=== PATIENT | male | born 1955 ===

== ENCOUNTER 2023-06-16 09:30 | Inpatient (IN) | payer OTHER ==
[~2023-06-16] VITALS: Ht 165.1 cm; Wt 65.8 kg
[2023-06-16] MEDS ORDERED: CRESTOR10 MG PO (15:17)
[2023-06-16] MEDS ORDERED: HORIZANT600 MG PO (15:17)
[2023-06-16] MEDS ORDERED: VITAMIN C100 MG PO (15:18)
[2023-06-16] MEDS ORDERED: PROBIOTIC1 EAC4 PO (15:18)
[2023-06-16] MEDS ORDERED: CHILDREN'S ASPI81 MG PO (15:18)
[2023-06-16] MEDS ORDERED: TOPROL XL50 M1 PO (15:18)
[2023-06-20] MEDS ORDERED: CLONAZEPAM2 MG (07:57)
[2023-06-20] MEDS ORDERED: GABAPENTIN600 MG (07:58)
[2023-06-20 13:43] LABS: ALBUMIN 3.2 gm/dL (3.4-5.0); CALCIUM 8.1 mg/dL (8.5-10.1); CREATININE SERUM 0.86 mg/dL (0.70-1.30); GFR 88.97; PHOSPHOROUS 2.1 mg/dL (2.5-4.9); POTASSIUM 3.81 mEq/L (3.5-5.1)
[2023-06-21 09:06] LABS: MAGNESIUM 2.2 mg/dL (1.8-2.4); PHOSPHOROUS 2.5 mg/dL (2.5-4.9)
[2023-06-21 09:27] LABS: HEMATOCRIT 37.7 % (39.0-48.0); HEMOGLOBIN 13.2 g/dL (13-16.00); MEAN CELL VOLUME 86.5 fL (80.0-100.00); MEAN CORPUSCULAR HEMOGLOBIN 30.2 pg (27.00-32.0); MEAN CORPUSCULAR HGB CONC 34.9 g/dl (32.0-36.0); PLATELET COUNT 211 K/uL (150-450); RED BLOOD COUNT 4.36 M/uL (4.00-6.00); RED CELL DISTRIBUTION WIDTH 12.6 % (11.5-14.5)
[2023-06-22 07:49] LABS: CALCIUM 8.6 mg/dL (8.5-10.1); CREATININE SERUM 0.84 mg/dL (0.70-1.30); GFR 91.42; MAGNESIUM 1.9 mg/dL (1.8-2.4); POTASSIUM 4.45 mEq/L (3.5-5.1)
[2023-06-22 07:52] LABS: HEMOGLOBIN 13.9 g/dL (13-16.00); MEAN CELL VOLUME 86.9 fL (80.0-100.00); MEAN CORPUSCULAR HEMOGLOBIN 30.2 pg (27.00-32.0); MEAN CORPUSCULAR HGB CONC 34.8 g/dl (32.0-36.0); PLATELET COUNT 227 K/uL (150-450); RED CELL DISTRIBUTION WIDTH 12.7 % (11.5-14.5)
[2023-06-22] MEDS ORDERED: HYOSCYAMINE0.125 M1 SL (12:32)
== END 2023-06-22 13:19 | disposition home or self-care (01) | DRG 331 ==
LOC: SURH 06-20 05:30 → O/R 06-20 05:30 → SURG 06-20 09:30 → SURH 06-20 11:36
PROVIDERS: Internal Medicine; ADMIT Surgery; ATTEND Surgery
PROC: 07BB4ZZ Excision of Mesenteric Lymphatic, Percutaneous Endoscopic Approach (ICD-10-PCS; 2023-06-20)
PROC: 8E0W4CZ Robotic Assisted Procedure of Trunk Region, Percutaneous Endoscopic Approach (ICD-10-PCS; 2023-06-20)
PROC: 4A1BXSH Monitoring of Gastrointestinal Vascular Perfusion using Indocyanine Green Dye, External Approach (ICD-10-PCS; 2023-06-20)
PROC: 0DTF4ZZ Resection of Right Large Intestine, Percutaneous Endoscopic Approach (ICD-10-PCS; principal; 2023-06-20 11:00)
DX: K56.1 Intussusception (principal); R93.5 Abnormal findings on diagnostic imaging of other abdominal regions, including retroperitoneum; R10.9 Unspecified abdominal pain; Z20.822 Contact with and (suspected) exposure to COVID-19
CPT/HCPCS: 44204; 38570; S2900